=== PATIENT | male | born 1975 | race Caucasian/White ===

== ENCOUNTER 2021-03-18 10:25 | Emergency (ER) | payer OTHER ==
[~2021-03-18] VITALS: Ht 177.8 cm; Wt 76.7 kg
== END 2021-03-18 13:30 | disposition home or self-care (01) ==
LOC: ER 10:25
DX: Z00.8 Encounter for other general examination (principal); F43.10 Post-traumatic stress disorder, unspecified; Z11.4 Encounter for screening for human immunodeficiency virus [HIV]
CPT/HCPCS: 99283